=== PATIENT | female | born 1965 | race Caucasian/White ===

== ENCOUNTER 2022-11-28 07:22 | Day surgery (SDC) | payer BC ==
[2022-11-25 09:13] VITALS: BMI 25.4
[2022-11-28 09:33] VITALS: RESP 20; TEMP 97.2
[2022-11-28 09:55] VITALS: BP 107/64; PULSE 78
== END 2022-11-28 09:57 | disposition home or self-care (01) ==
LOC: FASU-ENDO 07:22
PROVIDERS: ATTEND Internal Medicine Gastroenterology
PROC: 0DBL8ZX Excision of Transverse Colon, Via Natural or Artificial Opening Endoscopic, Diagnostic (ICD-10-PCS; principal; 2022-11-28 08:45)
DX: Z12.11 Encounter for screening for malignant neoplasm of colon (principal); D12.3 Benign neoplasm of transverse colon; K63.5 Polyp of colon
CPT/HCPCS: 88305-TC